=== PATIENT | male | born 1975 | race Caucasian/White ===

== ENCOUNTER 2024-02-08 13:08 | Emergency (ER) | payer BC ==
[~2024-02-08] VITALS: Ht 180.3 cm; Wt 99.8 kg
[2024-02-08 13:17] VITALS: BP_SYST 140; PULSE 74; RESP 16; TEMP 96.9; O2SAT 98
[2024-02-08] MEDS: IBUPROFEN 800 MG TABLET PO ONE (14:21)
[2024-02-08] MEDS: DIPHTH,PERTUSS(ACELL),TET VAC 0.5 ML VIAL (Tdap) I.M. ONE (14:21)
[2024-02-08] MEDS ORDERED: IBUP-1969 PO (14:33)
[2024-02-08] MEDS ORDERED: BACI1OIN7 TP (14:37)
[2024-02-08] MEDS ORDERED: CEPH-548 PO (14:45)
[2024-02-08] MEDS: BACITRACIN 1 GM OINT TP ONE (14:52)
[2024-02-08 14:53] VITALS: BP_SYST 140; PULSE 74; RESP 16; TEMP 96.9; O2SAT 98
== END 2024-02-08 14:52 | disposition home or self-care (01) ==
LOC: SED 13:08
DX: S01.01XA Laceration without foreign body of scalp, initial encounter (principal); Z23 Encounter for immunization; W22.8XXA Striking against or struck by other objects, initial encounter; Y93.89 Activity, other specified; Y92.89 Other specified places as the place of occurrence of the external cause; Y99.8 Other external cause status
CPT/HCPCS: 70450-TC; 90715; 99285